=== PATIENT | male | born 1965 | race Hispanic/Latino ===

== ENCOUNTER 2019-06-04 10:24 | Emergency (ER) | payer BC ==
--- NOTE | 2019-06-04 10:56 | NUR ---
pt was suppose to be across the street for diagnostic imaging and not here.
== END 2019-06-04 10:25 | disposition short-term general hospital (02) ==
LOC: FSED 10:24
DX: Z53.21 Procedure and treatment not carried out due to patient leaving prior to being seen by health care provider (principal)

== ENCOUNTER → 2019-06-04 | Outpatient (CLI) | payer BC ==
--- NOTE | 2019-06-04 12:27 | Diagnostic Imaging Report ---
Lumbar spine series, 5 views. History: Back pain. Comparison: None available. Discussion: The paraspinal soft tissues are unremarkable. The alignment of the lumbar spine is normal. There is no evidence of fracture, spondylolisthesis, or spondylolysis. The intervertebral disc spaces are within normal limits. Scattered osteophytes are present throughout the lumbar spine. IMPRESSION: Mild degenerative changes of the lumbar spine. Signed by: Torsten Ramirez on 06/04/2019 12:24 PM
== END ==
LOC: RAD 10:54
PROVIDERS: ATTEND Family Medicine
DX: M54.5 Low back pain (principal)
CPT/HCPCS: 72110